=== PATIENT | male | born 1960 | race Two or more races ===

== ENCOUNTER 2018-05-23 08:02 | Emergency (ER) | payer OTHER ==
[~2018-05-23] VITALS: Ht 180.3 cm; Wt 86.2 kg
[~2018-05-23 08:02] MED LIST: AMOXICILLIN500 MG ORAL; BACITRACIN15 GM TOPIC; NKM; NORCO 5-325 TA1 EACH ORAL
--- NOTE | 2018-05-23 08:16 | NUR ---
ED Nurse Note: PT WALKED IN TO ER TODAY FROM HOME. AOX4. PT C/O GENERALIZED BODY PAIN AFTER FALL X YESTERDAY AROUND 1400. PT STATES HE FELL ON HIS LEFT KNEE. SKIN CLEAN, DRY, AND INTACT. PT DENIES HEAD TRAUMA OR LOC. PT HAS STEADY GAIT, FULL ROM OF ALL EXTREMITIES, CIRCULATION AND SENSATION INTACT, CAP REFILL <3 SECONDS, AND 5/5 MUSCLE STRENGTH. PT DENIES ANY NUMBNESS OR TINGLING.
[2018-05-23 08:18] VITALS: BP 126/80
--- NOTE | 2018-05-23 08:42 | Emergency Room Report ---
History of Present Illness General Chief Complaint: Multiple Trauma/Fall Source: Patient Present Illness HPI 58-year-old male complains of pain in his neck bilaterally and feels like a cracking sensation when he returns at ever since he fell yesterday inside [employer] on a wet floor, he reports he slipped and fell to the left side, but he is having mild right wrist pain as well as pain in his neck and a low-grade headache, he reports he thinks he may have passed out for a few seconds but is not certain, he denies any vomiting, numbness, tingling, weakness , slurred speech, vision complaints, and reports he is got no medical problems and is not on any medications at all. Allergies: Coded Allergies: No Known Allergies (Unverified , 08/27/15) Patient History Past Medical History: see triage record Reviewed Nursing Documentation: PMH: Agreed; PSxH: Agreed Nursing Documentation-PM Past Medical History: No Stated History Review of Systems All Other Systems: negative except mentioned in HPI Physical Exam Vital Signs Date Time Temp Pulse Resp B/P (MAP) Pulse Ox O2 Delivery O2 Flow Rate FiO2 05/23/18 08:09 97.5 75 16 128/84 96 Room Air Sp02 EP Interpretation: reviewed, normal General Appearance: no apparent distress, alert, non-toxic Head: normocephalic Eyes: bilateral eye normal inspection, bilateral eye PERRL, bilateral eye EOMI ENT: normal ENT inspection, hearing grossly normal, normal pharynx, no angioedema, normal voice, TMs + canals normal, uvula midline, moist mucus membranes Neck: normal inspection, full range of motion, supple, thyroid normal, no meningismus, no bony tend, supple/symm/no masses Respiratory: chest non-tender, lungs clear, normal breath sounds, chest symmetrical, palpation of chest normal Cardiovascular #1: normal peripheral pulses, regular rate, rhythm Cardiovascular #2: 2+ radial (R), 2+ radial (L), 2+ dorsalis pedis (R), 2+ dorsalis pedis (L) Gastrointestinal: normal inspection, non tender, soft, no mass, no guarding, no rebound Rectal: deferred Genitourinary: normal inspection, no CVA tenderness Musculoskeletal: back normal, gait/station normal, normal range of motion, non- tender, no calf tenderness Neurologic: alert, responsive, shrub grower III-XII nml as tested, motor strength/tone normal, sensory intact, speech normal Psychiatric: judgement/insight normal, memory normal, mood/affect normal, anxious Skin: normal color, no rash, warm/dry, normal turgor Lymphatic: no adenopathy Medical Decision Making Diagnostic Impression: Primary Impression: Fall ER Course patient with very low risk injury pattern, normal exam, we had a lengthy discussion, I explained that based on my clinical judgment as well as multiple evidence-based guidelines, he does not need a ct scan to clear his c-spine or head from significant injury. He initially was relieved to hear this and then as I was going to dc him with reassurance and return precautions, he requested he get a ct scan because he felt a popping sensation when he turned his neck. I reassured him that this was not a symptom of significant c-spine or head injury, but he was adament that wanted the study. ct's negative, will dc. CT/MRI/US Diagnostic Results CT/MRI/US Diagnostic Results : Imaging Test Ordered: ct head and c-spine Impression nad Last Vital Signs Date Time Temp Pulse Resp B/P (MAP) Pulse Ox O2 Delivery O2 Flow Rate FiO2 05/23/18 08:18 74 16 Room Air 05/23/18 08:18 97.9 126/80 98 Disposition: HOME, SELF-CARE Condition: Stable Referrals: NON PHYSICIAN (PCP) JERRELL LEWIS M.D May 23, 2018 08:42
--- NOTE | 2018-05-23 08:50 | NUR ---
ED Nurse Note: PT TO CT VIA WHEELCHAIR
--- NOTE | 2018-05-23 09:42 | Diagnostic Imaging Report ---
Indication: Headache Technique: Contiguous 5 mm thick transaxial imaging of the head obtained in a Siemens Sensation [address] scanner. Soft tissue and bone windows generated. Automatic Exposure Control was utilized. Total Dose length Product (DLP): 1870.[address] Dose Index Volume (CTDIvol): 70.38,16.83 mGy Comparison: none Findings: There is mild prominence of the ventricles, basal cisterns, and cerebral sulci consistent with atrophy. Mild, nonspecific, white matter hypoattenuation is noted throughout the brain consistent with chronic small vessel disease. There is no midline shift, edema, acute hemorrhage, mass effect, or abnormal extra-axial fluid collections. Bones and extra osseous soft tissues are unremarkable. Impression: No acute intracranial bleed, mass effect or edema. Mild atrophy of the brain. Nonspecific white matter hypoattenuation probably due to chronic small vessel disease. The CT scanner at [facility] is accredited by the [employer] and the scans are performed using dose optimization techniques as appropriate to a performed exam including Automatic Exposure control.
--- NOTE | 2018-05-23 09:45 | Diagnostic Imaging Report ---
Indication: Neck pain. Technique: Continuous helical imaging of the cervical spine was obtained transaxially from the skull base to the upper thoracic spine. 2-D coronal and sagittal reformatted images were obtained. Automatic Exposure Control was utilized. Total Dose length Product (DLP): 1870.[address] Dose Index Volume (CTDIvol): 70.38,16.83 mGy Comparison: None Findings: There is no acute fracture or malalignment identified. There is no soft tissue swelling identified. Mild uncovertebral arthritis is demonstrated at multiple levels. Some of the intervertebral discs show mild narrowing. Impression: No acute injury Mild spondylosis The CT scanner at [facility] is accredited by the [employer] and the scans are performed using dose optimization techniques as appropriate to a performed exam including Automatic Exposure control.
[2018-05-23 10:10] VITALS: BP 128/84
--- NOTE | 2018-05-23 10:11 | NUR ---
ER Nurse Note: PT SITTING PEACEFULLY IN BED IN NAD. AOX4. DISCHARGE PAPERWORK EXPLAINED TO PT. PT VERBALIZES UNDERSTANDING AND ALL QUESTIONS WERE ANSWERED. DISCHARGE PAPERWORK GIVEN TO PT AND ID WRISTBAND REMOVED. PT WALKED OUT OF ER WITH STEADY GAIT AND ALL BELONGINGS.
== END 2018-05-23 10:40 | disposition home or self-care (01) ==
LOC: EMR 08:29
DX: M54.2 Cervicalgia (principal); W18.30XA Fall on same level, unspecified, initial encounter; Y92.512 Supermarket, store or market as the place of occurrence of the external cause; R51 Headache; M47.812 Spondylosis without myelopathy or radiculopathy, cervical region
CPT/HCPCS: 70450; 72125; 99284

== ENCOUNTER → 2018-12-29 | Emergency (ER) | payer OTHER ==
[~2018-12-29] VITALS: Ht 182.9 cm; Wt 83.9 kg
[~2018-12-29] MED LIST changes: +IBUPROFEN600 MG ORAL
[2018-12-29 12:22] VITALS: BP 116/78
--- NOTE | 2018-12-29 13:16 | Emergency Room Report ---
History of Present Illness General Chief Complaint: Pain Source: Patient Present Illness HPI 58-year-old male with no significant past medical history here complaining of pain in his left second toe that started last night. Patient reports that he was having a nightmare and in his stream he kicked the night-stand and started having throbbing pain in the morning. Denies pain radiation, tingling and numbness. Rating the pain 5 out of 10 has full range of motion. No ecchymosis noted no bony tenderness noted. Denies all other injury, loss of consciousness , head injury. Has not taken medication for pain. Denies chest pain, shortness of breath, palpitation, abdominal pain, and all other associated symptoms Allergies: Coded Allergies: No Known Allergies (Unverified , 12/29/18) Patient History Past Medical History: see triage record Past Surgical History: unable to obtain Pertinent Family History: none Immunizations: UTD Reviewed Nursing Documentation: PMH: Agreed; PSxH: Agreed Nursing Documentation-PMH Past Medical History: No History, Except For Review of Systems All Other Systems: negative except mentioned in HPI Physical Exam Vital Signs Date Time Temp Pulse Resp B/P (MAP) Pulse Ox O2 Delivery O2 Flow Rate FiO2 12/29/18 12:22 98.8 72 18 116/78 (91) 94 Sp02 EP Interpretation: reviewed, normal General Appearance: no apparent distress, alert, GCS 15, non-toxic Head: normocephalic, atraumatic Eyes: bilateral eye normal inspection, bilateral eye PERRL ENT: hearing grossly normal, normal pharynx, no angioedema, normal voice Neck: full range of motion, supple/symm/no masses Respiratory: chest non-tender, lungs clear, normal breath sounds, speaking full sentences Cardiovascular #1: regular rate, rhythm, no edema, no murmur Cardiovascular #2: 2+ dorsalis pedis (R), 2+ dorsalis pedis (L) Gastrointestinal: normal bowel sounds, non tender, soft, non-distended, no guarding, no rebound Genitourinary: no CVA tenderness Musculoskeletal: back normal, gait/station normal, normal range of motion, non- tender, swelling - left second toe Neurologic: alert, oriented x3, responsive, motor strength/tone normal, sensory intact, speech normal Psychiatric: judgement/insight normal, memory normal, mood/affect normal, no suicidal/homicidal ideation Skin: no rash, other - no eccymosis Lymphatic: no adenopathy Procedures Additional Procedure Procedure Narrative janeen tape left 2nd and 3rd toes Medical Decision Making PA Attestation All my diagnosis and treatment plans were reviewed ad discussed with my supervising physician Dr. Burleson Diagnostic Impression: Primary Impression: Toe contusion ER Course 58-year-old male with no significant past medical history here complaining of pain in his left second toe that started last night. Patient reports that he was having a nightmare and in his stream he kicked the night-stand and started having throbbing pain in the morning. Denies pain radiation, tingling and numbness. Rating the pain 5 out of 10 has full range of motion. No ecchymosis noted no bony tenderness noted. Denies all other injury, loss of consciousness , head injury. Has not taken medication for pain. Denies chest pain, shortness of breath, palpitation, abdominal pain, and all other associated symptoms Ddx considered but are not limited to: foot fracture, toe contusion versus fracture versus sprain versus strain Vital signs: are WNL, pt. is afebrile H&PE are most consistent with: Toe contusion ORDERS: foot Xray . Ibuprofen ED INTERVENTIONS: Janeen tape DISCHARGE: At this time pt. is stable for d/c to home. Will provide printed patient care instructions, and any necessary prescriptions. Care plan and follow up instructions have been discussed with the patient prior to discharge. I advised the patient to purchase a postoperative shoe for better support however due to not having a fracture no immobility is needed patient to follow- up with her primary care provider keep affected area elevated and avoid strenuous physical activity. Other X-Ray Diagnostic Results Other X-Ray Diagnostic Results : X-Ray ordered: Left toe # of Views/Limited Vs Complete: 3 View Indication: Pain EP Interpretation: Yes PA Xray: Interpretation reviewed, by supervising MD, and agrees with findings. Interpretation: no dislocation, no soft tissue swelling, no fractures Impression: No acute disease Electronically Signed by: Aracely Aguayo PA-C Last Vital Signs Date Time Temp Pulse Resp B/P (MAP) Pulse Ox O2 Delivery O2 Flow Rate FiO2 12/29/18 12:22 98.8 72 18 116/78 (91 94 Disposition: HOME, SELF-CARE Condition: Stable Scripts Ibuprofen* (MOTRIN*) 600 Mg Tablet 600 MG ORAL Q6H PRN for For Pain, #30 TAB Prov: Aracely Patel 12/29/18 Patient Instructions: Contusion, [id number] Additional Instructions: Keep affected area elevated alternate between icing and heating follow-up with your primary care provider Aracely Patel Dec 29, 2018 13:16
--- NOTE | 2018-12-30 10:44 | Diagnostic Imaging Report ---
Indication: Left toe pain Comparison: None Findings: 3 views of the left forefoot obtained. No acute fracture, malalignment, periostitis, or osteochondral defects are identified. Bones are osteopenic. There is generalized joint space narrowing indicative of arthrosis. Soft tissues are unremarkable. No radiopaque foreign body identified. Impression: No acute findings
== END | disposition home or self-care (01) ==
LOC: EMR 13:16
DX: S90.122A Contusion of left lesser toe(s) without damage to nail, initial encounter (principal); W22.09XA Striking against other stationary object, initial encounter; Y92.003 Bedroom of unspecified non-institutional (private) residence as the place of occurrence of the external cause
CPT/HCPCS: 99283

== ENCOUNTER 2019-02-04 19:09 | Emergency (ER) | payer OTHER ==
[~2019-02-04] VITALS: Ht 180.3 cm; Wt 81.6 kg
[2019-02-04 19:27] VITALS: BP 125/80
--- NOTE | 2019-02-04 19:28 | NUR ---
ED Nurse Note: pt walked in c/o right eye discomfort with burning and itching sensation, pt reports he just started having it today. noted mild redness w/ swelling on right upper eyelid, sclera intact, will cont monitor.
[2019-02-04] MEDS ORDERED: ERYTHROMYCIN3.5 GM RIGHT EYE (19:41)
--- NOTE | 2019-02-04 19:45 | NUR ---
ED Nurse Note: pt cleared to be d/c per ermd, pt discharge and aftercare instruction provided w/ prescription, pt education done via discussion and handout, pt advised to follow up with pcp or return to ed if changes in condition, vss, ambulatory w/ steady gait, left w/ all belonging.
[2019-02-04 19:46] VITALS: BP 125/80
--- NOTE | 2019-02-04 21:18 | Emergency Room Report ---
History of Present Illness General Chief Complaint: Eye Problems Source: Patient Present Illness HPI [id number] M presents ED for evaluation. Complaining of right eye pain. States that this morning he noticed a "stye" at the corner of his right eye which has since resolved. States he still having pain and irritation in that area. States there is some redness to his eye. States he was tearing. Pain is dull, 6 out of 10, nonradiating. Denies photophobia or blurry vision. No other aggravating relieving factors. Denies any other associated symptoms Allergies: Coded Allergies: No Known Allergies (Unverified , 12/29/18) Patient History Past Medical History: none Past Surgical History: none Pertinent Family History: none Social History: Denies: smoking, alcohol use, drug use Immunizations: UTD Reviewed Nursing Documentation: PMH: Agreed; PSxH: Agreed Review of Systems All Other Systems: negative except mentioned in HPI Physical Exam Vital Signs Date Time Temp Pulse Resp B/P (MAP) Pulse Ox O2 Delivery O2 Flow Rate FiO2 02/04/19 19:14 97.5 79 14 125/80 (95) 95 02/04/19 19:27 Room Air Sp02 EP Interpretation: reviewed, normal General Appearance: no apparent distress, alert, GCS 15, non-toxic Head: normocephalic Eyes: right eye lid inflammation, right eye Scleral Injection; left eye normal inspection; bilateral eye PERRL, bilateral eye EOMI ENT: hearing grossly normal, normal pharynx, no angioedema, normal voice Neck: full range of motion, supple, no meningismus, supple/symm/no masses Respiratory: normal inspection Cardiovascular #1: normal inspection Gastrointestinal: normal inspection Rectal: deferred Genitourinary: no CVA tenderness Musculoskeletal: normal inspection Neurologic: alert, oriented x3, responsive, motor strength/tone normal, sensory intact, speech normal Psychiatric: normal inspection Skin: no rash Lymphatic: normal inspection Medical Decision Making Diagnostic Impression: Primary Impression: Eye pain Qualified Codes: H57.11 - Ocular pain, right eye ER Course Hospital Course 58 yo M presents with R eye pain Differential diagnoses include: conjunctivitis, traumatic iritis, foreign body, corneal abrasion Clinical course Patient placed on stretcher. After initial history physical exam reveals middle -aged male in no acute distress. Patient describes pain at the corner of his right eye. I see no evidence of stye. There is some scleral injection. No discharge. There is some erythema to the lower eyelid at the eyelashes. Remainder of exam unremarkable. Discussed findings with patient. Will prescribe erythromycin ointment. Safe for discharge for close outpatient follow -up. I will provide optho referrals Diagnosis - eye pain Stable and discharged to home with prescription for eryhtromycin ointment. Followup with PMD/Optho. Return to ED if symptoms recur or worsen Last Vital Signs Date Time Temp Pulse Resp B/P (MAP) Pulse Ox O2 Delivery O2 Flow Rate FiO2 02/04/19 19:46 97.5 78 16 125/80 96 Room Air Status: improved Disposition: HOME, SELF-CARE Condition: Stable Scripts Erythromycin Base (ERYTHROMYCIN*) 3.5 Gm Oint...g. 1 APPLIC RIGHT EYE QID for 7 Days, #3.5 GM 0 Refills Prov: Ney Burleson MD 02/04/19 Referrals: Mulugeta Banegas MD, Maziar M.D. MD Patient Instructions: Bacterial Conjunctivitis, [id number] Ney Burleson MD Feb 04, 2019 21:18
== END 2019-02-04 19:46 | disposition home or self-care (01) ==
LOC: EMR 19:32
DX: H57.11 Ocular pain, right eye (principal)
CPT/HCPCS: 99282

== ENCOUNTER 2019-05-25 21:15 | Emergency (ER) | payer OTHER ==
[~2019-05-25] VITALS: Ht 180.3 cm; Wt 86.2 kg
[~2019-05-25 21:15] MED LIST changes: +ERYTHROMYCIN3.5 GM RIGHT EYE
[2019-05-25 21:22] VITALS: BP 131/93
--- NOTE | 2019-05-25 21:22 | NUR ---
ED Nurse Note: PATIENT AMBULATED TO ED C/O RIGHT TOE INFECTION X 10 DAYS. PT REPORTS FUNGUS INFECTION AND DECIDED TO FILE DOWN NAILFILE. REPORTS LACERATION THAT IS WARM AND PAINFUL TO TOUCH.
[2019-05-25 21:33] VITALS: BP 127/88
--- NOTE | 2019-05-25 21:33 | NUR ---
ED Nurse Note: toe cleaned, placed bacitracin, and dressed.
--- NOTE | 2019-05-25 21:34 | NUR ---
ER DISCHARGE NOTE: Patient is cleared to be discharged per ERMD, pt is aox4, on room air, with stable vital signs. pt was given dc and prescription instructions, pt was able to verbalize understanding, pt id band removed. pt is able to ambulate with steady gait. pt took all belongings.
[2019-05-25] MEDS ORDERED: DOXYCYCLINE MO100 MG ORAL (21:35)
--- NOTE | 2019-05-25 21:36 | Emergency Room Report ---
History of Present Illness General Chief Complaint: Skin Rash/Abscess Source: Patient Present Illness HPI This is a 59-year-old male with no past medical history. He presents with complaint of left toe pain. Patient said that he was filing a "fungus" off his nail before apply the medicine. In doing so he poked himself at the time of his left great toenail. This occurred 4 days ago. He said it is painful and red now. No fever chills but no drainage. No swelling. Worse with palpation. No other injury. No fever chills. Allergies: Coded Allergies: No Known Allergies (Unverified , 12/29/18) Patient History Past Medical History: see triage record, old chart reviewed Past Surgical History: none Pertinent Family History: none Social History: Denies: smoking Immunizations: other Reviewed Nursing Documentation: PMH: Agreed; PSxH: Agreed Nursing Documentation-PMH Past Medical History: No Stated History Review of Systems Eye: Denies: eye pain, blurred vision ENT: Denies: ear pain, nose congestion, throat swelling Respiratory: Denies: cough, shortness of breath Cardiovascular: Denies: chest pain, palpitations Gastrointestinal: Denies: abdominal pain, diarrhea, nausea, vomiting Musculoskeletal: Denies: back pain, joint pain Skin: Denies: rash Neurological: Denies: headache, numbness Endocrine: Denies: increased thirst, increased urine Hematologic/Lymphatic: Denies: easy bruising All Other Systems: negative except mentioned in HPI Physical Exam Vital Signs Date Time Temp Pulse Resp B/P (MAP) Pulse Ox O2 Delivery O2 Flow Rate FiO2 05/25/19 21:16 98.4 87 14 131/93 (106) 99 Room Air Vitals normal Sp02 EP Interpretation: reviewed, normal General Appearance: well appearing, no apparent distress, alert Head: normocephalic, atraumatic Eyes: bilateral eye PERRL, bilateral eye EOMI ENT: hearing grossly normal, normal pharynx Neck: full range of motion, supple, no meningismus Respiratory: chest non-tender, lungs clear, normal breath sounds Cardiovascular #1: regular rate, rhythm, no murmur Gastrointestinal: normal bowel sounds, non tender, no mass, no organomegaly, no bruit, non-distended Musculoskeletal: back normal, normal range of motion, gait/station normal, other - Left great toenail: There is no paronychia. At the base of the nail there is a small abrasion two millimeter with some blood underneath it. Neurologic: alert, oriented Psychiatric: mood/affect normal Medical Decision Making Diagnostic Impression: Primary Impression: Abrasion of toe, left Qualified Codes: S90.415A - Abrasion, left lesser toe(s), initial encounter ER Course Patient with superficial abrasion. May be at most early infection. Will discharge home with antibiotic ointment and antibiotics. Last Vital Signs Date Time Temp Pulse Resp B/P (MAP) Pulse Ox O2 Delivery O2 Flow Rate FiO2 05/25/19 21:22 98.4 88 14 131/93 99 Room Air Status: improved Disposition: HOME, SELF-CARE Condition: Stable Scripts Doxycycline Monohydrate* (DOXYCYCLINE MONOHYDRATE*) 100 Mg Capsule 100 MG ORAL Q12H, #14 CAP 0 Refills Prov: Ray Butler MD 05/25/19 Additional Instructions: Keep wound clean. Clean first with hydrogen peroxide and apply antibiotic ointment. Follow-up with your doctor in 7 days for recheck. Return if worse. Ray Butler MD May 25, 2019 21:36
[2019-05-25] MEDS ORDERED: Bacitracin Oint UD TOPIC ONE (21:45)
== END 2019-05-25 22:00 | disposition home or self-care (01) ==
LOC: EMR 22:00
DX: S90.415A Abrasion, left lesser toe(s), initial encounter (principal); X58.XXXA Exposure to other specified factors, initial encounter; Y92.9 Unspecified place or not applicable
CPT/HCPCS: 99282

== ENCOUNTER 2020-07-26 10:45 | Emergency (ER) | payer OTHER ==
[~2020-07-26] VITALS: Ht 182.9 cm; Wt 83.9 kg
[~2020-07-26 10:45] MED LIST changes: +DOXYCYCLINE MO100 MG ORAL
[2020-07-26 11:09] VITALS: BP 135/81
[2020-07-26] MEDS ORDERED: Fluorescein Strips ONE (11:11)
[2020-07-26] MEDS ORDERED: Fluorescein Strips LEFT EYE ONE (11:15)
--- NOTE | 2020-07-26 11:16 | Emergency Room Report ---
History of Present Illness General Chief Complaint: Right eye pain Source: Patient Present Illness HPI Disclaimer: Please note that this report is being documented using [employer] technology. This can lead to erroneous entry secondary to incorrect interpretation by the dictating instrument. HPI: 60-year-old male presents for evaluation of eye pain irritation and drainage. Symptoms present past 3 days. He believes he might of gotten a small amount of painting at 3 days ago while painting but immediately flushed and clean the yard. He awoke with eye irritation redness and minor swelling. This morning he awoke with crusted eyelid and thick drainage. Reports irritation. Denies direct eye trauma. Denies swelling of the lids. Denies fever or chills. Does not wear contact lenses. Reports his visual acuity unchanged. Denies eye pressure or headaches. PMH: Reviewed PSH: Reviewed Allergies: Reviewed Social Hx: Reviewed Allergies: Coded Allergies: No Known Allergies (Unverified , 12/29/18) Review of Systems All Other Systems: negative except mentioned in HPI Physical Exam General: Awake and alert, no acute distress HEENT: NC/AT. EOMI. PERRLA. The conjunctiva is injected in the right eye, norm al appearance on left. No current purulent drainage. No significant edema. No proptosis. No hyphema, no hypopyon. Visual acuity: 20/20 OS, 20/20 OD, 20/20 OU. Stroud lamp examination: No fluorescein uptake over the lens, no abrasions, no ulcerations, no dendrites, negative Ever. Resp: Normal work of breathing Skin: Intact. No abrasions, laceration or rash over the exposed skin MSK: Normal tone and bulk. Moving all extremities. No obvious deformity. Neuro: Awake and alert. Mentating appropriately Medical Decision Making Diagnostic Impression: Primary Impression: Conjunctivitis ER Course 60-year-old male presents for evaluation of right-sided eye pain. Exam most consistent with conjunctivitis. No abnormality seen on Stroud lamp examination. Otherwise well-appearing. Stable for outpatient follow-up. Start on Polytrim and follow-up with PMD. Disposition: HOME, SELF-CARE Condition: Stable Wili Chen MD Jul 26, 2020 11:16
[2020-07-26] MEDS ORDERED: POLYTRIM OP SOL10 ML RIGHT EYE (11:17)
== END 2020-07-26 12:11 | disposition home or self-care (01) ==
LOC: EMR 11:27
DX: H10.9 Unspecified conjunctivitis (principal)
CPT/HCPCS: 99282